=== PATIENT | female | born 1945 | race Caucasian/White ===

== ENCOUNTER → 2019-08-04 | Outpatient (CLI) | payer BC, MEDICARE ==
--- NOTE | 2019-08-04 09:56 | RAD ---
CT CHEST WO CONTRAST Indication: Shortness of breath, abnormal chest x-ray Technique: Noncontrast CT imaging was performed of the chest, multiplanar reconstruction images submitted. One or more of the following individualized dose reduction techniques were utilized for this examination: 1. Automated exposure control 2. Adjustment of the mA and/or kV according to patient size 3. Use of iterative reconstruction technique. Comparison: None Findings: There is groundglass nodule of the left upper lobe best seen image 37 series 2 up to about 1.3 cm AP by 0.8 cm transverse by 0.8 cm cc. There is a focus of subsolid, partially groundglass density of the left lower lobe image 53 series 2 up to about 0.7 cm. There is 0.9 cm groundglass left lower lobe nodule image 59 series 2. There is 0.7 cm right middle lobe nodule axial image 63 series 2. There is focus of somewhat groundglass appearing density of the lingula image 54 series 2 about 0.9 cm although there is adjacent atelectasis. There is groundglass right lower lobe nodule image 43 series 2 up to about 1.5 cm transverse by 0.9 cm AP. There are couple of small dense nodules of the left lower lobe such as seen images 38 and 39. There is 0.4 cm left lower lobe nodule such as seen image 33 series 2. There is centrilobular emphysema with upper zone predominance. There is no pleural or pericardial fluid or pneumothorax. There is some coronary calcification. Thoracic aortic caliber is within limits, scattered plaque. No significantly enlarged nodes are identified of the chest. There is vascular graft in the right axillary region. There is hypodense lesion of the right thyroid gland about 1.2 cm in size. There is some central and superior height loss of the T10 and T4 vertebral bodies without osseous retropulsion. There is multilevel ankylosis of the mid thoracic levels. IMPRESSION: 1. There are nodules bilaterally, largest with groundglass, subsolid features. 3-6 month follow-up is recommended as per revised Fleischner guidelines. Findings could be due to various infectious or inflammatory etiology although neoplastic etiology not excluded. 2. There is centrilobular emphysema. 3. There is some coronary calcification. 4. There is degree of height loss of the T10 and T4 vertebral bodies, may be chronic assuming no focal point tenderness. 5. There is hypodense lesion of the right thyroid gland better characterized by ultrasound as per clinical indication. Electronically signed by: Sammy Patel MD (08/04/2019 9:53 AM) [id number]
== END | disposition home or self-care (01) ==
LOC: NM 07:31
PROVIDERS: ATTEND Internal Medicine Pulmonary Disease
DX: J43.2 Centrilobular emphysema (principal); R91.8 Other nonspecific abnormal finding of lung field; I25.10 Atherosclerotic heart disease of native coronary artery without angina pectoris; I70.0 Atherosclerosis of aorta; E07.89 Other specified disorders of thyroid; M43.24 Fusion of spine, thoracic region
CPT/HCPCS: 71250

== ENCOUNTER → 2019-08-06 | Outpatient (CLI) | payer BC, MEDICARE ==
--- NOTE | 2019-08-06 13:19 | RAD ---
MR#: [id number] Date of Study: 08/06/2019 Ordering Physician: CELESTINO LUNSFORD, Referring Physician: EARLINE GROVER Tech: FUENTES Longo APPROVED REPORT Test Type: Exercise Stress Nurse/Tech: FUENTES Longo Test Indications: WOODS Cardiac History: PAD Medications: see EHR Medical History: see EHR Resting ECG: SR Resting Heart Rate: 61 bpm Resting Blood Pressure: 150/47mmHg Pretest Chest Pain: No chest pain Nurse/Tech Notes Consent: The procedure was explained to the patient in lay terms. Informed consent was witnessed. Aj eout was entered into [employer]. History and Stress Test performed by FUENTES Longo POST EXERCISE Reason for Termination: Reached target heart rate Target HR: 123 Max HR: 160 bpm Exercise duration: 4.25 min:sec, 1 Stage Max Blood Pressure: 186/51mmHg Blood Pressure response to exercise: Normal blood pressure response during stress. Heart Rate response to exercise: normal Chest Pain: No. INTERPRETATION Stress EKG Conclusion: No significant ST/T changes to suggest ischemia. Imaging Protocol IMAGE PROTOCOL: Rest Tc-99m/stress Tc-99m 1 day Rest: Stress: Viability: Radiopharm.Tc99m [id number] Sestamibi Dose10.2mCi 30.9mCi Duration 15min. 10min. Img Date 08/06/2019 08/06/2019 Post-Injection Exercise: 1 minute Rest Admin Site:IV - Right AntecubitalAdministrator: FUENTES Longo Stress Admin Site: IV - Right AntecubitalAdministrator: FUENTES Longo STRESS DATA End Diast. Vol.18.0mlAv. Heart Rate99.0bpm End Syst. Vol.1.0mlCO Index BSA0.0L/min Myocardial Mass55.0gEject. Ivkslpyn78.0% Stress Rates Pk. Fill Rate4.61EDV/secLVtime Pk. Fill 132.31msec Pk. Empty Rate7.20ESV/secLVtime Pk. Eject91.31msec /3 Pk. Fill1.40EDV/sec Stress Scores Regional WT0.00Summed WT1.00 Regional WM0.00Summed WM3.00 The rest and stress images show normal perfusion, normal contraction and thickening. LV Perf. Quant 17 Seg. SSS0.00 17 Seg. SRS0.00 17 Seg. SDS0.00 Stress Defect Extent (% LAD)0.00Rest Defect Extent (% LAD)0.00Rev. Defect Extent (% LAD)0.00 Stress Defect Extent (% LCX) 0.00Rest Defect Extent (% LCX)0.00Rev. Defect Extent (% LCX)0.00 Stress Defect Extent (% RCA)0.00Rest Defect Extent (% RCA)0.00Rev. Defect Extent (% RCA)0.00 Stress Defect Extent (% LUCI)0.00Rest Defect Extent (% LUCI)0.00Rev. Defect Extent (% LUCI)0.00 Other Information Quality:Average Risk Assessment: Low Risk Conclusion 1. No evidence of EKG changes with stress testing. 2. Normal perfusion at stress/rest. 3. Low risk study. 4. EF > 60%. Signed by : Seth Bailey, Electronically Approved : 08/06/2019 13:18:53
== END | disposition home or self-care (01) ==
LOC: NM 08:44
PROVIDERS: ATTEND Nurse Practitioner
DX: R06.00 Dyspnea, unspecified (principal)
CPT/HCPCS: 78452; 93017; A9500; 96376

== ENCOUNTER → 2019-12-18 | Outpatient (CLI) | payer BC, MEDICARE ==
--- NOTE | 2019-12-18 08:53 | RAD ---
CT of the chest without contrast 12/18/2019 INDICATION: Follow-up pulmonary nodules. COMPARISON STUDY: CT of the chest without contrast August 04, 2019. TECHNIQUE: Multidetector CT imaging of the chest was performed without the administration of IV contrast FINDINGS: Heart size is normal. No pericardial effusion is identified. Multifocal coronary calcification is seen. Aortic calcification is noted. Limited noncontrast enhanced evaluation of the mediastinum demonstrates no pathologically enlarged mediastinal lymph nodes. Areas of calcification within several small mediastinal lymph nodes are seen which could reflect prior granulomatous disease. Moderate to severe centrilobular emphysema is again noted. No pneumothorax or pleural effusion is identified. Scattered groundglass and sub-solid nodules are seen throughout the bilateral lungs. Allowing for differences in slice selection and technique, all visualized nodular opacities appear stable in the interim since comparison study. Linear opacity in the right middle lobe and basilar right lower lobe suggests scarring. No acute osseous changes are seen. Compression deformity at T10 is similar. Limited visualization of the upper abdomen demonstrates postoperative changes in the right renal fossa no acute abnormalities in the upper abdomen are appreciated. No axillary bypass graft is present. Evaluation of patency is not possible without contrast. Hypodensity in the right thyroid is unchanged. IMPRESSION: 1. Stable appearance of multiple bilateral groundglass and subsolid nodules. Continued CT surveillance one year recommended. 2. Centrilobular emphysema 3. Noted chronic changes as noted above. CT DOSING PQRS STATEMENT: One or more of the following individualized dose reduction techniques were utilized for this examination: 1. Automated exposure control 2. Adjustment of the mA and/or kV according to patient size 3. Use of iterative reconstruction technique Electronically signed by: Willy Bridges MD (12/18/2019 8:50 AM) [id number]
== END | disposition home or self-care (01) ==
LOC: CT 07:56
PROVIDERS: ATTEND Internal Medicine Pulmonary Disease
DX: R91.8 Other nonspecific abnormal finding of lung field (principal); J43.2 Centrilobular emphysema; I25.10 Atherosclerotic heart disease of native coronary artery without angina pectoris; I70.0 Atherosclerosis of aorta; M43.8X4 Other specified deforming dorsopathies, thoracic region
CPT/HCPCS: 71250